=== PATIENT | male | born 1980 | race American Indian/Alaskan Native ===

== ENCOUNTER 2016-11-05 00:48 | Emergency (ER) | payer SELFPAY ==
[2016-11-05] MEDS ORDERED: XYLOCAINE 1%/ EPI 1:100,000 INFILTRATI ONE (05:14)
[2016-11-05] MEDS ORDERED: NORCO 5/325 PO ONE (05:14)
[2016-11-05] MEDS ORDERED: BOOSTRIX IM ONE (05:15)
[2016-11-05] MEDS ORDERED: TRIPLE ANTIBIOTIC TP ONE (06:40)
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
[2016-11-05 07:40] VITALS: BP 166/94
== END 2016-11-05 08:41 | disposition home or self-care (01) ==
LOC: ED 00:48
DX: S01.81XA Laceration without foreign body of other part of head, initial encounter (principal); F17.200 Nicotine dependence, unspecified, uncomplicated; Y08.89XA Assault by other specified means, initial encounter; Y93.89 Activity, other specified; Y99.8 Other external cause status; Y92.488 Other paved roadways as the place of occurrence of the external cause
CPT/HCPCS: 70450; 72125; 90471; 90715; A6250